=== PATIENT | female | born 1985 | race Caucasian/White ===

== ENCOUNTER → 2025-07-22 15:44 | Outpatient (REF) | payer BC, SELFPAY | LOC: MRI 3T 15:44 | PROVIDERS: ATTENDING PHYSICIAN Surgery; FAMILY PHYSICIAN Physician Assistant Medical | DX: Z91.89 Other specified personal risk factors, not elsewhere classified (principal); R92.30 Dense breasts, unspecified | CPT/HCPCS: 77049; A9585 ==